=== PATIENT | female | born 1970 | race Caucasian/White ===

== ENCOUNTER → 2018-10-15 10:45 | Outpatient (CLI) | payer OTHER, SELFPAY ==
[2018-10-15 12:08] LABS: Bacteria Urine None Seen; RBC Urine None Seen (0-5/HPF); WBC Urine None Seen (0-5/HPF)
[2018-10-15 12:20] LABS: Appearance Urine UA CLEAR; Bilirubin Urine UA NEGATIVE (NEGATIVE); Glucose Urine UA NEGATIVE (Negative); Ketones Urine UA NEGATIVE (NEGATIVE); Leukocyte Esterase Urine UA NEGATIVE (NEGATIVE); Nitrite Urine UA NEGATIVE (Negative); Occult Blood Urine UA TRACE-INTACT (Negative); Protein Urine UA NEGATIVE (Negative); Urobilinogen Urine UA 0.2 E.U./dL (0.2); pH Urine UA 5.5 (4.5-8.0)
[2018-10-15 12:30] LABS: Color Urine UA STRAW
[2018-10-15 13:09] LABS: Culture Indicated Urine Cult Not Indicated
== END ==
PROVIDERS: PCP Nurse Practitioner Family; Visit Provider Nurse Practitioner Family
DX: R30.0 Dysuria (principal)
CPT/HCPCS: 81001

== ENCOUNTER → 2021-01-06 09:22 | Outpatient (CLI) | payer OTHER, SELFPAY ==
[2021-01-06 10:37] LABS: Add Manual Diff / Slide Review NO; Basophils Absolute Auto 100 /uL (0-100); Eosinophils Absolute Auto 300 /uL (0-450); Eosinophils Percent Auto 3.5 % (2-4); Hematocrit 42.2 % (36-46); Lymphocytes Absolute Auto 3500 /uL (1100-4500); Lymphocytes Percent Auto 40.1 % (25-40); Mean Corpuscular HGB Conc 33.3 % (30-36); Mean Corpuscular Hemoglobin 29.1 PG (26-34); Mean Corpuscular Volume 87.5 fL (80-100); Monocytes Absolute Auto 500 /uL (0-900); Monocytes Percent Auto 5.7 % (3-14); Neutrophils Absolute Auto 4300 /uL (1500-7000); Neutrophils Percent Auto 49.7 % (50-75); Platelet Count 305 X10^3/uL (150-400); Red Blood Cell Count 4.83 X10^6/uL (4.0-5.2); Red Cell Distribution Width 12.9 % (11.6-14.8); White Blood Cell Count 8.7 X10^3/uL (4.5-11.0)
[2021-01-06 11:14] LABS: Alanine Aminotransferase 29 IU/L (<35); Albumin 4.7 g/dL (3.5-5.0); Albumin Globulin Ratio 1.5 (1.0-2.8); Alkaline Phosphatase 94 U/L (38-126); Aspartate Aminotransferase 30 IU/L (14-36); BUN Creatinine Ratio 23.3 (6-22); Bilirubin Total 1.2 mg/dL (0.2-1.3); Blood Urea Nitrogen 14 mg/dL (7-17); Calcium 9.3 mg/dL (8.4-10.2); Carbon Dioxide 28 mmol/L (22-32); Chloride 102 mmol/L (98-107); Cholesterol 238 mg/dL (140-199); Estimated Glomerular Filt Rate > 60.0 mL/min (>60); Globulin 3.2 g/dL (1.7-4.1); Glucose 90 mg/dL (70-100); HDL Cholesterol 44 mg/dL (40-60); HEMOLYSIS 18 (0-50); LDL Cholesterol Calculated 156 mg/dL (<100); Potassium 3.9 mmol/L (3.4-5.1); Sodium 139 mmol/L (137-145); Total Protein 7.9 g/dL (6.3-8.2); Triglycerides 188 mg/dL (35-150)
[2021-01-07 07:28] LABS: C Peptide 3.5 ng/mL (1.1-4.4); Insulin Level Total 23.6 uIU/mL (2.6-24.9)
== END ==
PROVIDERS: PCP Naturopath; Referring Provider Naturopath; Visit Provider Naturopath
DX: F33.1 Major depressive disorder, recurrent, moderate (principal); R52 Pain, unspecified; R68.82 Decreased libido
CPT/HCPCS: 36415; 80053; 80061; 83525; 84681; 85025

== ENCOUNTER → 2021-08-24 12:50 | Outpatient (CLI) | payer OTHER, SELFPAY ==
--- NOTE | 2021-08-24 | DI.MG.S_ITS ---
BILATERAL DIGITAL SCREENING MAMMOGRAM 3D/2D WITH CAD: 08/24/2021 CLINICAL: Baseline exam Routine screening. No prior exams were available for comparison. The tissue of both breasts is heterogeneously dense. This may lower the sensitivity of mammography. Current study was also evaluated with a Computer Aided Detection (CAD) system. No significant masses, calcifications, or other findings are seen in either breast. IMPRESSION: NEGATIVE There is no mammographic evidence of malignancy. A 1 year screening mammogram is recommended. This exam was interpreted at Station ID: [id number]. NOTE: For mammograms, a report in lay terms will be sent to the patient. Approximately 15% of breast malignancies will not be visualized mammographically. In the management of a palpable breast mass, a negative mammogram must not discourage biopsy of a clinically suspicious lesion. Electronically Signed By: Shaw [email or web address]/[email or web address]:08/24/2021 13:39:35 letter sent: Normal Exam ACR BI-RADS Category 1: Negative [id number]
== END ==
PROVIDERS: PCP Family Medicine; Referring Provider Naturopath; Visit Provider Naturopath
DX: Z12.31 Encounter for screening mammogram for malignant neoplasm of breast (principal)
CPT/HCPCS: 77063; 77067

== ENCOUNTER → 2021-09-22 12:15 | Outpatient (CLI) | payer OTHER, SELFPAY ==
[2021-09-22 12:49] LABS: Add Manual Diff / Slide Review NO; Basophils Absolute Auto 100 /uL (0-100); Basophils Percent Auto 0.6 % (0-2); Eosinophils Absolute Auto 200 /uL (0-450); Eosinophils Percent Auto 2.6 % (2-4); Hematocrit 43.7 % (36-46); Hemoglobin 15.1 g/dL (12.0-16.0); Lymphocytes Absolute Auto 3300 /uL (1100-4500); Lymphocytes Percent Auto 36.4 % (25-40); Mean Corpuscular HGB Conc 34.5 % (30-36); Mean Corpuscular Hemoglobin 29.5 PG (26-34); Mean Corpuscular Volume 85.4 fL (80-100); Monocytes Absolute Auto 500 /uL (0-900); Monocytes Percent Auto 5.8 % (3-14); Neutrophils Absolute Auto 4900 /uL (1500-7000); Neutrophils Percent Auto 54.6 % (50-75); Platelet Count 328 X10^3/uL (150-400); Red Blood Cell Count 5.12 X10^6/uL (4.0-5.2); Red Cell Distribution Width 12.9 % (11.6-14.8); White Blood Cell Count 8.9 X10^3/uL (4.5-11.0)
[2021-09-22 13:05] LABS: Alanine Aminotransferase 29 IU/L (<35); Albumin 5.2 g/dL (3.5-5.0); Albumin Globulin Ratio 1.5 (1.0-2.8); Alkaline Phosphatase 118 U/L (38-126); Aspartate Aminotransferase 35 IU/L (14-36); BUN Creatinine Ratio 22.5 (6-22); Bilirubin Total 1.4 mg/dL (0.2-1.3); Blood Urea Nitrogen 16 mg/dL (7-17); Calcium 9.7 mg/dL (8.4-10.2); Carbon Dioxide 29 mmol/L (22-32); Chloride 101 mmol/L (98-107); Cholesterol 257 mg/dL (140-199); Estimated Glomerular Filt Rate > 60 mL/min (>60); Globulin 3.5 g/dL (1.7-4.1); Glucose 97 mg/dL (70-100); HDL Cholesterol 54 mg/dL (40-60); LDL Cholesterol Calculated 173 mg/dL (<100); Sodium 140 mmol/L (137-145); Total Protein 8.7 g/dL (6.3-8.2); Triglycerides 148 mg/dL (35-150)
[2021-09-23 06:40] LABS: HEMOLYSIS 35 (0-50); Potassium 4.9 mmol/L (3.4-5.1)
== END ==
PROVIDERS: PCP Family Medicine; Referring Provider Family Medicine; Visit Provider Family Medicine
DX: E78.5 Hyperlipidemia, unspecified (principal)
CPT/HCPCS: 36415; 80053; 80061; 84443; 85025

== ENCOUNTER → 2022-01-13 13:45 | Outpatient (CLI) | payer OTHER, SELFPAY ==
[2022-01-13 15:15] LABS: Cholesterol 212 mg/dL (140-199); HDL Cholesterol 48 mg/dL (40-60); LDL Cholesterol Calculated 139 mg/dL (<100); Triglycerides 123 mg/dL (35-150)
[2022-01-13 15:45] LABS: TSH w/ Reflex to FT4 1.48 uIU/mL (0.47-4.68)
== END ==
PROVIDERS: PCP Family Medicine; Referring Provider Family Medicine; Visit Provider Family Medicine
DX: Z00.00 Encounter for general adult medical examination without abnormal findings (principal); E78.2 Mixed hyperlipidemia; F34.1 Dysthymic disorder
CPT/HCPCS: 36415; 80061; 84443

== ENCOUNTER 2022-06-24 16:59 | Emergency (ER) | payer OTHER, SELFPAY ==
[2022-06-24 17:12] VITALS: BP 170/113; PULSE 110; RESP 16; TEMP 36.9; O2SAT 97; BMI 35.6
[2022-06-24 17:17] VITALS: PULSE 111; O2SAT 97
[2022-06-24 17:30] VITALS: BP 160/96; PULSE 104; RESP 16; O2SAT 97
--- NOTE | 2022-06-24 17:39 | ED.SKABFB ---
HPI - Skin/Abscess/Foreign Bdy <Debra Milligan PA-C - Last Filed: 06/24/22 19:06> General Chief complaint: Skin/Abscess/Foreign Body Stated complaint: Thinks MRSA Time Seen by Provider: 06/24/22 17:17 Mode of arrival: Family Vehicle History of Present Illness HPI narrative: Patient is a 51-year-old female presenting for evaluation of worsening right lower abdomen skin infection. She 1st developed this lesion about 8 or 9 days ago She was seen by me in the walk-in clinic 5 days ago and prescribed doxycycline. She denies fever, headache, chills. She noticed that the lesion started weeping a little bit of fluid today and seems to look worse. She has described lesions in her right groin which were evaluated by me in the walk-in clinic 5 days ago on Sunday. She said today, that they are much better in her right groin with no new outbreaks. She is mainly concerned with the worsening infection of her right lower abdomen. She is wondering if it needs to be incision and drained because we had discussed this as a possible outcome at her visit this past Sunday. Reports drug allergy to Bactrim with side effect of headache roughly 30 years ago. She does report diagnosis of considerable anxiety, and is asking for something to help her calm down. Related Data Home Medications Medication Instructions Recorded Confirmed lamotrigine 100 mg tablet 100 mg PO BID 10/15/18 09/22/21 (Lamictal) trazodone 150 mg tablet 150 mg PO BEDTIME PRN 10/15/18 09/22/21 alprazolam 0.5 mg tablet 0.5 mg PO TID PRN 09/22/21 09/22/21 Previous Rx's Medication Instructions Recorded doxycycline hyclate 100 mg capsule 100 mg PO BID #14 caps 06/20/22 clindamycin HCl 300 mg capsule 300 mg PO QID 7 days #28 caps 06/24/22 Allergies Allergy/AdvReac Type Severity Reaction Status Date / Time Sulfa (Sulfonamide Allergy Verified 06/24/22 17:16 Antibiotics) Review of Systems <Debra Milligan PA-C - Last Filed: 06/24/22 19:06> Review of Systems Narrative: per HPI Patient History <Debra Milligan PA-C - Last Filed: 06/24/22 19:06> Medical History ADHD Anxiety Chronic back pain Depression Fibromyalgia Hyperlipemia Polycystic ovary syndrome Preventative health care Psychotic disorder (~2013) Rosacea Family History Father Hyperlipidemia Grandfather Cancer Grandmother Alzheimer's disease Grandmother Cancer Social History Smoking Status: Never smoker second hand exposure: No alcohol intake: current (socially) substance use type: does not use Smoking Status: Never smoker alcohol intake frequency: holidays/special occasions only Substance Use Type: does not use Exam <Debra Milligan PA-C - Last Filed: 06/24/22 19:06> Narrative Exam Narrative: GENERAL: 51 year old patient appears stated age. Well-developed patient, in no acute distress. CARDIOVASCULAR: Regular rate and rhythm without murmurs, gallops, or rubs. RESPIRATORY: Clear to auscultation. Breath sounds equal bilaterally. No wheezes, rales, or rhonchi. GASTROINTESTINAL: Abdomen soft, non-tender except over area of lesion NEURO: AOx3. SKIN: 4 cm diameter erythematous area with mild fluctuence and some exudate, area is not raised, there is no punctate opening, there appears to be some blood within the lesion. Area of surrounding erythema extends about 2 cm out on the superior side and extends about 4 cm out inferiorly with some irregularly shaped extension to the midline. Initial Vital Signs Initial Vital Signs: Vital Signs Temperature 98.4 F 06/24/22 17:12 Pulse Rate 110 H 06/24/22 17:12 Respiratory Rate 16 06/24/22 17:12 Blood Pressure 170/113 H 06/24/22 17:12 Pulse Oximetry 97 06/24/22 17:12 Oxygen Delivery Method Room Air 06/24/22 17:12 <Mylene Membreno MD - Last Filed: 06/25/22 05:38> Initial Vital Signs Initial Vital Signs: Vital Signs Temperature 98.4 F 06/24/22 17:12 Pulse Rate 110 H 06/24/22 17:12 Respiratory Rate 16 06/24/22 17:12 Blood Pressure 170/113 H 06/24/22 17:12 Pulse Oximetry 97 06/24/22 17:12 Oxygen Delivery Method Room Air 06/24/22 17:12 Course <Debra Milligan PA-C - Last Filed: 06/24/22 19:06> Orders Ordered: Discontinued Medications Lorazepam (Lorazepam 0.5 Mg Tablet) 1 mg PO NOW ONE Stop: 06/24/22 17:51 Last Admin: 06/24/22 17:54 Dose: 1 mg Documented By: DIAZ Vital Signs Vital signs: Vital Signs - 8 hr 06/24/22 17:12 06/24/22 17:17 06/24/22 17:30 Temperature 98.4 F Pulse Rate 110 H 111 H Respiratory Rate 16 Blood Pressure 170/113 H 160/96 H Pulse Oximetry 97 97 Oxygen Delivery Method Room Air 06/24/22 17:30 Temperature Pulse Rate 104 H Respiratory Rate 16 Blood Pressure Pulse Oximetry 97 Oxygen Delivery Method Room Air <Mylene Membreno MD - Last Filed: 06/25/22 05:38> Orders Ordered: Discontinued Medications Lorazepam (Lorazepam 0.5 Mg Tablet) 1 mg PO NOW ONE Stop: 06/24/22 17:51 Last Admin: 06/24/22 17:54 Dose: 1 mg Documented By: DIAZ Vital Signs Vital signs: Vital Signs - 8 hr 06/24/22 17:12 06/24/22 17:17 06/24/22 17:30 Temperature 98.4 F Pulse Rate 110 H 111 H Respiratory Rate 16 Blood Pressure 170/113 H 160/96 H Pulse Oximetry 97 97 Oxygen Delivery Method Room Air 06/24/22 17:30 Temperature Pulse Rate 104 H Respiratory Rate 16 Blood Pressure Pulse Oximetry 97 Oxygen Delivery Method Room Air MDM - Skin/Abscess/Foreign Bdy <Debra Milligan PA-C - Last Filed: 06/24/22 19:06> Lab Data 06/24/22 18:05 06/24/22 18:05 Labs: Lab Results 06/24/22 06/24/22 Range/Units 18:05 18:05 WBC 11.2 H (4.5-11.0) X10^3/uL RBC 4.59 (4.0-5.2) X10^6/uL Hgb 13.3 (12.0-16.0) g/dL Hct 39.0 (36-46) % MCV 84.9 (80-100) fL MCH 29.0 (26-34) PG MCHC 34.1 (30-36) % RDW 13.1 (11.6-14.8) % Plt Count 324 (150-400) X10^3/uL Neut % (Auto) 53.9 (50-75) % Lymph % (Auto) 33.4 (25-40) % [place] % (Auto) 8.2 (3-14) % Eos % (Auto) 3.6 (2-4) % Baso % (Auto) 0.9 (0-2) % Neut # (Auto) 6000 (7122-5645) /uL Lymph # (Auto) 3700 (7308-1612) /uL [place] # (Auto) 900 (0-900) /uL Eos # (Auto) 400 (0-450) /uL Baso # (Auto) 100 (0-100) /uL Sodium 138 (137-145) mmol/L Potassium 3.6 (3.4-5.1) mmol/L Chloride 103 (98-107) mmol/L Carbon Dioxide 27 (22-32) mmol/L BUN 17 (7-17) mg/dL Creatinine 0.59 (0.52-1.04) mg/dL Estimated GFR > 60 (>60) mL/min BUN/Creatinine Ratio 28.8 H (6-22) Glucose 107 H (70-100) mg/dL Calcium 9.2 (8.4-10.2) mg/dL Total Bilirubin 0.6 (0.2-1.3) mg/dL AST 24 (14-36) IU/L ALT 26 (<35) IU/L Alkaline Phosphatase 98 (38-126) U/L Total Protein 7.4 (6.3-8.2) g/dL Albumin 4.3 (3.5-5.0) g/dL Globulin 3.1 (1.7-4.1) g/dL Albumin/Globulin Ratio 1.4 (1.0-2.8) Lipase 138 (23-300) U/L MDM Narrative Medical decision making narrative: MDM * differential diagnosis includes but not limited to: Cellulitis, sepsis, abscess * Prior records reviewed: Yes * My lab interpretation: CBC and CMP ordered and show mildly elevated white count of 11 * Independent discussions with: Dr. Bryan * Social Considerations: None noted today * Shared Decision Making: Discussed with patient lab results and reason for not doing incision and drainage today. We discussed indications for switching of antibiotics to clindamycin along with potential side effects. We also discussed return precautions if erythema progresses around the lesion, or if systemic symptoms of body aches fever or chills occur. *Disposition: see below, along with detailed discharge instructions that have been reviewed with patient as well as indications for ED re-evaluation and additional outpatient follow up [] Multiple etiologies for patient's symptoms considered including, but not limited to: Worsening cellulitis despite doxycycline treatment, Prior Charts reviewed: Walk-in clinic visit with myself this past Sunday. Consultations: Consulted with Dr. Bryan who came and evaluated wound. She recommended that we do not do an incision and drainage today, however culture was taken, and CBC and CMP was drawn. CBC showed mildly elevated white count. Based upon these results, we will consider switching antibiotic to oral clindamycin as doxycycline is not improving condition. She was also given 1 mg of Ativan to help calm her anxiety today over this condition. Findings and discharge diagnosis discussed with patient/family followed by verbalization of understanding Return precautions discussed with patient/family whom verbalize understanding of diagnosis and plan <Mylene Membreno MD - Last Filed: 06/25/22 05:38> Lab Data Labs: Lab Results 06/24/22 06/24/22 Range/Units 18:05 18:05 WBC 11.2 H (4.5-11.0) X10^3/uL RBC 4.59 (4.0-5.2) X10^6/uL Hgb 13.3 (12.0-16.0) g/dL Hct 39.0 (36-46) % MCV 84.9 (80-100) fL MCH 29.0 (26-34) PG MCHC 34.1 (30-36) % RDW 13.1 (11.6-14.8) % Plt Count 324 (150-400) X10^3/uL Neut % (Auto) 53.9 (50-75) % Lymph % (Auto) 33.4 (25-40) % [place] % (Auto) 8.2 (3-14) % Eos % (Auto) 3.6 (2-4) % Baso % (Auto) 0.9 (0-2) % Neut # (Auto) 6000 (5994-7774) /uL Lymph # (Auto) 3700 (7440-5195) /uL [place] # (Auto) 900 (0-900) /uL Eos # (Auto) 400 (0-450) /uL Baso # (Auto) 100 (0-100) /uL Sodium 138 (137-145) mmol/L Potassium 3.6 (3.4-5.1) mmol/L Chloride 103 (98-107) mmol/L Carbon Dioxide 27 (22-32) mmol/L BUN 17 (7-17) mg/dL Creatinine 0.59 (0.52-1.04) mg/dL Estimated GFR > 60 (>60) mL/min BUN/Creatinine Ratio 28.8 H (6-22) Glucose 107 H (70-100) mg/dL Calcium 9.2 (8.4-10.2) mg/dL Total Bilirubin 0.6 (0.2-1.3) mg/dL AST 24 (14-36) IU/L ALT 26 (<35) IU/L Alkaline Phosphatase 98 (38-126) U/L Total Protein 7.4 (6.3-8.2) g/dL Albumin 4.3 (3.5-5.0) g/dL Globulin 3.1 (1.7-4.1) g/dL Albumin/Globulin Ratio 1.4 (1.0-2.8) Lipase 138 (23-300) U/L Discharge Plan Departure Patient Disposition: Home Clinical Impression: Cellulitis Instructions: DI for Cellulitis -- Adult, DI for Skin Abscess Activity Restrictions/Additional Instructions: You were diagnosed with cellulitis today which has an infection of the skin. Since the antibiotic, doxycycline, did not seem to be working based upon the spread of redness. I recommend that we switch to oral clindamycin. Thankfully, you have had no systemic symptoms of fever, body aches, chills and do not need IV antibiotic treatment today. Continue to monitor symptoms for spreading erythema around the lesion site, or fever, body aches and chills and follow up for further evaluation if you develop these symptoms. Prescriptions: New clindamycin HCl 300 mg capsule 300 mg PO QID 7 Days Qty: 28 0RF No Action doxycycline hyclate 100 mg capsule 100 mg PO BID Qty: 14 0RF trazodone 150 mg tablet 150 mg PO BEDTIME PRN lamotrigine [Lamictal] 100 mg tablet 100 mg PO BID alprazolam 0.5 mg tablet 0.5 mg PO TID PRN Referrals: Faisal Zepeda DO [Primary Care Provider] - Stand Alone Forms: Patient Portal/API <Mylene Membreno MD - Last Filed: 06/25/22 05:38> Cosign ED Attending Cosignature Attestation: I was immediately available in the department for consultation throughout this patient's visit. Mylene Membreno MD
[2022-06-24] MEDS: LORazepam 0.5 MG TABLET 1 MG PO (17:54)
[2022-06-24 18:18] LABS: Add Manual Diff / Slide Review NO; Basophils Absolute Auto 100 /uL (0-100); Basophils Percent Auto 0.9 % (0-2); Eosinophils Absolute Auto 400 /uL (0-450); Eosinophils Percent Auto 3.6 % (2-4); Hemoglobin 13.3 g/dL (12.0-16.0); Lymphocytes Absolute Auto 3700 /uL (1100-4500); Lymphocytes Percent Auto 33.4 % (25-40); Mean Corpuscular HGB Conc 34.1 % (30-36); Mean Corpuscular Volume 84.9 fL (80-100); Monocytes Absolute Auto 900 /uL (0-900); Monocytes Percent Auto 8.2 % (3-14); Neutrophils Absolute Auto 6000 /uL (1500-7000); Neutrophils Percent Auto 53.9 % (50-75); Platelet Count 324 X10^3/uL (150-400); Red Blood Cell Count 4.59 X10^6/uL (4.0-5.2); Red Cell Distribution Width 13.1 % (11.6-14.8); White Blood Cell Count 11.2 X10^3/uL (4.5-11.0)
[2022-06-24 18:31] LABS: Alanine Aminotransferase 26 IU/L (<35); Albumin 4.3 g/dL (3.5-5.0); Albumin Globulin Ratio 1.4 (1.0-2.8); Alkaline Phosphatase 98 U/L (38-126); Aspartate Aminotransferase 24 IU/L (14-36); BUN Creatinine Ratio 28.8 (6-22); Bilirubin Total 0.6 mg/dL (0.2-1.3); Blood Urea Nitrogen 17 mg/dL (7-17); Calcium 9.2 mg/dL (8.4-10.2); Carbon Dioxide 27 mmol/L (22-32); Chloride 103 mmol/L (98-107); Estimated Glomerular Filt Rate > 60 mL/min (>60); Globulin 3.1 g/dL (1.7-4.1); Glucose 107 mg/dL (70-100); HEMOLYSIS < 15 (0-50); Lipase 138 U/L (23-300); Potassium 3.6 mmol/L (3.4-5.1); Sodium 138 mmol/L (137-145); Total Protein 7.4 g/dL (6.3-8.2)
[2022-06-24 19:16] VITALS: BP 144/78; PULSE 90; RESP 18; O2SAT 98
== END 2022-06-24 19:19 | disposition home or self-care (01) ==
PROVIDERS: Emergency Medicine; Emergency Provider Physician Assistant; PCP Family Medicine
DX: L03.314 Cellulitis of groin (principal)
CPT/HCPCS: 36415; 80053; 83690; 85025; 87070; 87075; 87077; 87147; 87186; 87205; 99283

== ENCOUNTER 2023-06-23 05:41 | Emergency (ER) | payer OTHER, SELFPAY ==
[2023-06-23] VITALS (10 sets, daily range): BP systolic 143–161; BP diastolic 87–100; PULSE 74–95; RESP 12–23; TEMP 36.7; O2SAT 96–98; BMI 35.9
--- NOTE | 2023-06-23 05:57 | ED_ITS ---
HPI - Chest Pain <Molly Bryan DO - Last Filed: 06/24/23 00:06> General Chief Complaint: Chest Pain Stated Complaint: chest pain Time Seen by Provider: 06/23/23 05:52 History of Present Illness HPI narrative: Patient 52-year-old female history of fibromyalgia thoracic outlet syndrome hyperlipidemia presenting today with chest pain. She reports that he has had multiple episodes over last couple of weeks of chest pain. However this morning it woke her from her sleep. She describes it as sharp and pressure-like. It lasted for about 15 minutes. It does not have any radiation. She has not noticed specific provocation or palliation for the pain previously. She has not noticed any significant chest pain or shortness of breath with exertion. She does frequently get numbness tingling in both arms secondary to thoracic outlet syndrome. She also just got a new grand baby and helps watch him 3 days a week. Pain is not really reproducible with palpation. She denies any nausea no significant abdominal pain minimal epigastric pain Related Data Home Medications Medication Instructions Recorded Confirmed alprazolam 0.5 mg tablet 0.5 mg PO TID PRN 09/22/21 09/22/21 Previous Rx's Medication Instructions Recorded doxycycline hyclate 100 mg capsule 100 mg PO BID #14 caps 06/20/22 lamotrigine 100 mg tablet 100 mg PO BID #180 tabs 08/23/22 (Lamictal) trazodone 100 mg tablet 100 mg PO BEDTIME PRN sleep #90 09/01/22 tabs Allergies Allergy/AdvReac Type Severity Reaction Status Date / Time Sulfa (Sulfonamide Allergy Verified 06/24/22 17:16 Antibiotics) Patient History <Molly Bryan DO - Last Filed: 06/24/23 00:06> Medical History Insomnia Preventative health care Hyperlipemia Rosacea Psychotic disorder (~2013) Depression Anxiety ADHD Fibromyalgia Chronic back pain Polycystic ovary syndrome Family History Father Hyperlipidemia Grandfather Cancer Grandmother Alzheimer's disease Grandmother Cancer Social History Smoking Status: Never smoker second hand exposure: No alcohol intake: current (socially) substance use type: does not use Smoking Status: Never smoker alcohol intake frequency: holidays/special occasions only Substance Use Type: does not use Exam <Molly Bryan DO - Last Filed: 06/24/23 00:06> Initial Vital Signs Initial Vital Signs: Vital Signs Temperature 98.0 F 06/23/23 05:46 Pulse Rate 95 H 06/23/23 05:46 Respiratory Rate 16 06/23/23 05:46 Blood Pressure 161/100 H 06/23/23 05:46 Pulse Oximetry 98 06/23/23 05:46 Oxygen Delivery Method Room Air 06/23/23 05:46 GENERAL: Alert pleasant well-appearing 52-year-old and in no acute distress. HEENT: Head atraumatic,EOMI, pupils reactive, face symmetric, moist mucous membranes CARDIOVASCULAR: Regular rate and rhythm without murmurs, rubs or gallops. RESPIRATORY: Breath sounds equal bilaterally, no wheezes rales or rhonchi. ABDOMEN: Soft, nontender. Normoactive bowel sounds all 4 quadrants. No guarding or rebound. Negative Shields's sign no right upper quadrant pain minimal epigastric pain EXTREMITIES: Normal range of motion, no clubbing or edema. Neurovascularly intact NEUROLOGICAL: Alert and oriented x4.Normal gait and speech. Cranial nerves II through XII grossly intact. SKIN: Warm, dry, no laceration, no petechiae, no rashes or lesions. <Janie Navas MD - Last Filed: 06/23/23 09:58> Initial Vital Signs Initial Vital Signs: Vital Signs Temperature 98.0 F 06/23/23 05:46 Pulse Rate 95 H 06/23/23 05:46 Respiratory Rate 16 06/23/23 05:46 Blood Pressure 161/100 H 06/23/23 05:46 Pulse Oximetry 98 06/23/23 05:46 Oxygen Delivery Method Room Air 06/23/23 05:46 Scores <Molly Bryan DO - Last Filed: 06/24/23 00:06> HEART Score Heart Score history: Slightly Suspicious Heart Score EKG: Normal Heart Score Age: 45-64 years old Heart Score risk factors: 1-2 risk factors Heart Score troponin: < or = to normal limit Heart Score Total: 2 <Janie Navas MD - Last Filed: 06/23/23 09:58> HEART Score Heart Score Total: 2 Course <Molly Bryan DO - Last Filed: 06/24/23 00:06> Orders Ordered: ED Orders 06/23/23 05:58 XR chest 1V Stat EKG-12 Lead Stat 06/23/23 06:15 Complete Blood Count AUTO DIFF Stat Comprehensive Metabolic Panel Stat Lipase Stat Troponin & CK Cardiac Panel Stat 06/23/23 08:15 Troponin I Stat 06/23/23 08:55 EKG-12 Lead Stat Vital Signs Vital signs: Vital Signs - 8 hr 06/23/23 05:46 06/23/23 06:37 06/23/23 07:00 Temperature 98.0 F Pulse Rate 95 H 82 86 Respiratory Rate 16 16 23 Blood Pressure 161/100 H Pulse Oximetry 98 96 96 Oxygen Delivery Method Room Air Room Air 06/23/23 07:30 06/23/23 07:52 06/23/23 07:52 Temperature Pulse Rate 74 94 H Respiratory Rate 15 16 Blood Pressure 143/98 H Pulse Oximetry 96 98 Oxygen Delivery Method 06/23/23 07:53 06/23/23 08:00 06/23/23 08:00 Temperature Pulse Rate 79 88 Respiratory Rate 12 15 Blood Pressure 143/98 H 143/96 H Pulse Oximetry 98 98 Oxygen Delivery Method Room Air 06/23/23 08:30 06/23/23 08:30 06/23/23 09:00 Temperature Pulse Rate 86 Respiratory Rate 22 Blood Pressure 157/87 H 159/94 H Pulse Oximetry 96 Oxygen Delivery Method 06/23/23 09:00 06/23/23 09:30 06/23/23 09:30 Temperature Pulse Rate 83 84 Respiratory Rate 15 19 Blood Pressure 149/90 H Pulse Oximetry 98 98 Oxygen Delivery Method Room Air <Janie Navas MD - Last Filed: 06/23/23 09:58> Orders Ordered: ED Orders 06/23/23 05:58 XR chest 1V Stat EKG-12 Lead Stat 06/23/23 06:15 Complete Blood Count AUTO DIFF Stat Comprehensive Metabolic Panel Stat Lipase Stat Troponin & CK Cardiac Panel Stat 06/23/23 08:15 Troponin I Stat 06/23/23 08:55 EKG-12 Lead Stat Vital Signs Vital signs: Vital Signs - 8 hr 06/23/23 05:46 06/23/23 06:37 06/23/23 07:00 Temperature 98.0 F Pulse Rate 95 H 82 86 Respiratory Rate 16 16 23 Blood Pressure 161/100 H Pulse Oximetry 98 96 96 Oxygen Delivery Method Room Air Room Air 06/23/23 07:30 06/23/23 07:52 06/23/23 07:52 Temperature Pulse Rate 74 94 H Respiratory Rate 15 16 Blood Pressure 143/98 H Pulse Oximetry 96 98 Oxygen Delivery Method 06/23/23 07:53 06/23/23 08:00 06/23/23 08:00 Temperature Pulse Rate 79 88 Respiratory Rate 12 15 Blood Pressure 143/98 H 143/96 H Pulse Oximetry 98 98 Oxygen Delivery Method Room Air 06/23/23 08:30 06/23/23 08:30 06/23/23 09:00 Temperature Pulse Rate 86 Respiratory Rate 22 Blood Pressure 157/87 H 159/94 H Pulse Oximetry 96 Oxygen Delivery Method 06/23/23 09:00 06/23/23 09:30 06/23/23 09:30 Temperature Pulse Rate 83 84 Respiratory Rate 15 19 Blood Pressure 149/90 H Pulse Oximetry 98 98 Oxygen Delivery Method Room Air MDM - Chest Pain <Molly Bryan, DO - Last Filed: 06/24/23 00:06> Lab Data 06/23/23 06:15 06/23/23 06:15 Labs: Lab Results 06/23/23 06/23/23 Range/Units 06:15 08:15 WBC 10.0 (4.5-11.0) X10^3/uL RBC 5.04 (4.0-5.2) X10^6/uL Hgb 14.9 (12.0-16.0) g/dL Hct 43.4 (36-46) % MCV 86.1 (80-100) fL MCH 29.6 (26-34) PG MCHC 34.4 (30-36) % RDW 13.1 (11.6-14.8) % Plt Count 352 (150-400) X10^3/uL Neut % (Auto) 46.3 L (50-75) % Lymph % (Auto) 39.1 (25-40) % [place] % (Auto) 9.9 (3-14) % Eos % (Auto) 3.8 (2-4) % Baso % (Auto) 0.9 (0-2) % Neut # (Auto) 4600 (2993-9143) /uL Lymph # (Auto) 3900 (8163-9788) /uL [place] # (Auto) 1000 H (0-900) /uL Eos # (Auto) 400 (0-450) /uL Baso # (Auto) 100 (0-100) /uL Sodium 143 (137-145) mmol/L Potassium 3.9 (3.4-5.1) mmol/L Chloride 107 (98-107) mmol/L Carbon Dioxide 28 (22-32) mmol/L BUN 18 H (7-17) mg/dL Creatinine 0.65 (0.52-1.04) mg/dL Estimated GFR > 60 (>60) mL/min BUN/Creatinine Ratio 27.7 H (6-22) Glucose 92 (70-100) mg/dL Calcium 9.0 (8.4-10.2) mg/dL Total Bilirubin 0.9 (0.2-1.3) mg/dL AST 49 H (14-36) IU/L ALT 51 H (<35) IU/L Alkaline Phosphatase 119 (38-126) U/L Total Creatine Kinase 116 (30-135) U/L Troponin I < 0.012 < 0.012 (0.01-0.034) ng/mL Total Protein 8.1 (6.3-8.2) g/dL Albumin 4.6 (3.5-5.0) g/dL Globulin 3.5 (1.7-4.1) g/dL Albumin/Globulin Ratio 1.3 (1.0-2.8) Lipase 191 (23-300) U/L ECG Data Attestation: I personally reviewed and interpreted this ECG as follows: Prior ECG tracings: not available for review Interpretation: Normal sinus rhythm rate 95 AR interval 146 QRS [address] changes no T-wave inversions no priors to compare MDM Narrative Medical decision making narrative: Patient 52-year-old female presents today with chest pain. She has been having some chest pain off and on for a couple of weeks without any sort of provocation or palliation. Woke up today with your chest pain lasting for about 15 minutes and has now resolved. She has a low heart score of 2. Currently chest pain- free. Blood work has been reviewed 1st troponin is negative no other clinical significant abnormalities X-ray has been reviewed without acute cardiopulmonary process EKG has been reviewed Patient signed out to Dr. Navas for further disposition Care of patient is signed out to me by Dr. Bryan at 7:00 a.m.. Laboratory work and imaging reviewed, EKG shows no signs of acute ischemia. Troponins are undetectable x2, chest x-ray negative for acute processes. Patient reassessed, resting comfortably in bed, discussed all lab and imaging findings with the patient and recommended cardiology follow up especially if she continues to feel chest pain. Patient discharged home with her in stable condition. <Janie Navas MD - Last Filed: 06/23/23 09:58> Lab Data Labs: Lab Results 06/23/23 06/23/23 Range/Units 06:15 08:15 WBC 10.0 (4.5-11.0) X10^3/uL RBC 5.04 (4.0-5.2) X10^6/uL Hgb 14.9 (12.0-16.0) g/dL Hct 43.4 (36-46) % MCV 86.1 (80-100) fL MCH 29.6 (26-34) PG MCHC 34.4 (30-36) % RDW 13.1 (11.6-14.8) % Plt Count 352 (150-400) X10^3/uL Neut % (Auto) 46.3 L (50-75) % Lymph % (Auto) 39.1 (25-40) % [place] % (Auto) 9.9 (3-14) % Eos % (Auto) 3.8 (2-4) % Baso % (Auto) 0.9 (0-2) % Neut # (Auto) 4600 (4900-1983) /uL Lymph # (Auto) 3900 (4638-9243) /uL [place] # (Auto) 1000 H (0-900) /uL Eos # (Auto) 400 (0-450) /uL Baso # (Auto) 100 (0-100) /uL Sodium 143 (137-145) mmol/L Potassium 3.9 (3.4-5.1) mmol/L Chloride 107 (98-107) mmol/L Carbon Dioxide 28 (22-32) mmol/L BUN 18 H (7-17) mg/dL Creatinine 0.65 (0.52-1.04) mg/dL Estimated GFR > 60 (>60) mL/min BUN/Creatinine Ratio 27.7 H (6-22) Glucose 92 (70-100) mg/dL Calcium 9.0 (8.4-10.2) mg/dL Total Bilirubin 0.9 (0.2-1.3) mg/dL AST 49 H (14-36) IU/L ALT 51 H (<35) IU/L Alkaline Phosphatase 119 (38-126) U/L Total Creatine Kinase 116 (30-135) U/L Troponin I < 0.012 < 0.012 (0.01-0.034) ng/mL Total Protein 8.1 (6.3-8.2) g/dL Albumin 4.6 (3.5-5.0) g/dL Globulin 3.5 (1.7-4.1) g/dL Albumin/Globulin Ratio 1.3 (1.0-2.8) Lipase 191 (23-300) U/L MDM Narrative Medical decision making narrative: Care of patient is signed out to me by Dr. Bryan at 7:00 a.m.. Laboratory work and imaging reviewed, EKG shows no signs of acute ischemia. Troponins are undetectable x2, chest x-ray negative for acute processes. Patient reassessed, resting comfortably in bed, discussed all lab and imaging findings with the patient and recommended cardiology follow up especially if she continues to feel chest pain. Patient discharged home with her in stable condition. Discharge Plan Departure Patient Disposition: Home Clinical Impression: Chest pain Instructions: DI for Chest Pain Activity Restrictions/Additional Instructions: Your laboratory work and EKG were normal. Your chest x-ray did not show any acute abnormalities. I recommend following up with your primary care physician as well as Cardiology for further investigation of your chest pain. Prescriptions: No Action doxycycline hyclate 100 mg capsule 100 mg PO BID Qty: 14 0RF trazodone 100 mg tablet 100 mg PO BEDTIME PRN (Reason: sleep) Qty: 90 1RF Rx Instructions: New script for 90 tabs alprazolam 0.5 mg tablet 0.5 mg PO TID PRN lamotrigine [Lamictal] 100 mg tablet 100 mg PO BID Qty: 180 3RF Rx Instructions: NEEDS APPT WITH PCP Referrals: Guy Cruz MD [Physician] - Faisal Zepeda DO [Primary Care Provider] - Stand Alone Forms: Patient Portal/API
--- NOTE | 2023-06-23 05:58 | DI.RAD.S_ITS ---
PROCEDURE: XR CHEST 1V INDICATIONS: chest pain TECHNIQUE: One view of the chest was acquired. COMPARISON: None. FINDINGS: Surgical changes and devices: None. Lungs and pleura: Lungs are clear. No pleural effusions or pneumothorax. Mediastinum: Mediastinal contours appear normal. Heart size is normal. Bones and chest wall: No suspicious bony lesions. Overlying soft tissues appear unremarkable. IMPRESSION: No acute cardiopulmonary abnormality is seen. Dictated by: Casey Sorenson M.D. on 06/23/2023 at 8:02 Approved by: Casey Sorenson M.D. on 06/23/2023 at 8:04
[2023-06-23 06:23] LABS: Add Manual Diff / Slide Review NO; Basophils Absolute Auto 100 /uL (0-100); Basophils Percent Auto 0.9 % (0-2); Eosinophils Absolute Auto 400 /uL (0-450); Eosinophils Percent Auto 3.8 % (2-4); Hematocrit 43.4 % (36-46); Hemoglobin 14.9 g/dL (12.0-16.0); Lymphocytes Absolute Auto 3900 /uL (1100-4500); Lymphocytes Percent Auto 39.1 % (25-40); Mean Corpuscular HGB Conc 34.4 % (30-36); Mean Corpuscular Hemoglobin 29.6 PG (26-34); Mean Corpuscular Volume 86.1 fL (80-100); Monocytes Absolute Auto 1000 /uL (0-900); Monocytes Percent Auto 9.9 % (3-14); Neutrophils Absolute Auto 4600 /uL (1500-7000); Neutrophils Percent Auto 46.3 % (50-75); Platelet Count 352 X10^3/uL (150-400); Red Blood Cell Count 5.04 X10^6/uL (4.0-5.2); Red Cell Distribution Width 13.1 % (11.6-14.8)
[2023-06-23 06:35] LABS: Alanine Aminotransferase 51 IU/L (<35); Albumin 4.6 g/dL (3.5-5.0); Albumin Globulin Ratio 1.3 (1.0-2.8); Alkaline Phosphatase 119 U/L (38-126); Aspartate Aminotransferase 49 IU/L (14-36); BUN Creatinine Ratio 27.7 (6-22); Bilirubin Total 0.9 mg/dL (0.2-1.3); Blood Urea Nitrogen 18 mg/dL (7-17); Carbon Dioxide 28 mmol/L (22-32); Chloride 107 mmol/L (98-107); Creatine Kinase 116 U/L (30-135); Estimated Glomerular Filt Rate > 60 mL/min (>60); Globulin 3.5 g/dL (1.7-4.1); Glucose 92 mg/dL (70-100); HEMOLYSIS 27 (0-50); Lipase 191 U/L (23-300); Potassium 3.9 mmol/L (3.4-5.1); Sodium 143 mmol/L (137-145); Total Protein 8.1 g/dL (6.3-8.2)
[2023-06-23 06:46] LABS: Troponin I < 0.012 ng/mL (0.01-0.034)
[2023-06-23 08:49] LABS: Troponin I < 0.012 ng/mL (0.01-0.034)
== END 2023-06-23 09:50 | disposition home or self-care (01) ==
PROVIDERS: Emergency Medicine; Emergency Provider Emergency Medicine; PCP Family Medicine
DX: R07.9 Chest pain, unspecified (principal)
CPT/HCPCS: 36415; 71045; 80053; 82550; 83690; 84484; 85025; 93005; 99284